=== PATIENT | female | born 1990 | race African-American/Black ===

== ENCOUNTER 2021-02-01 13:24 | Day surgery (SDC) | payer SELFPAY ==
[2021-02-01] MEDS ORDERED: hydrALAZINE 20 MG/ML VIAL SLOW IVP PRN (14:25)
[2021-02-01 14:32] VITALS: BMI 39.8
== END 2021-02-01 14:11 | disposition home or self-care (01) ==
LOC: CSHLD/OP 13:24
PROVIDERS: ATTEND Internal Medicine
DX: O99.891 Other specified diseases and conditions complicating pregnancy (principal); R10.2 Pelvic and perineal pain; M62.830 Muscle spasm of back; O09.213 Supervision of pregnancy with history of pre-term labor, third trimester; Z3A.32 32 weeks gestation of pregnancy
CPT/HCPCS: 99282